=== PATIENT | male | born 1995 | race Caucasian/White ===

== ENCOUNTER → 2017-01-09 | Outpatient (CLI) | payer BC, OTHER | END | disposition home or self-care (01) | LOC: C.RDSM 14:50 | PROVIDERS: ATTEND Physical Medicine & Rehabilitation Sports Medicine | DX: M25.531 Pain in right wrist (principal) ==

== ENCOUNTER → 2017-01-21 | Outpatient (CLI) | payer BC, OTHER | END | disposition home or self-care (01) | LOC: C.RDSM 13:00 | PROVIDERS: ATTEND Physical Medicine & Rehabilitation Sports Medicine | DX: S52.571A Other intraarticular fracture of lower end of right radius, initial encounter for closed fracture (principal); X58.XXXA Exposure to other specified factors, initial encounter ==

== ENCOUNTER → 2017-02-04 | Outpatient (CLI) | payer BC | END | disposition home or self-care (01) | LOC: C.RDSM 15:28 | PROVIDERS: ATTEND Physical Medicine & Rehabilitation Sports Medicine | DX: R52 Pain, unspecified (principal) ==

== ENCOUNTER → 2017-03-11 | Outpatient (CLI) | payer BC | END | disposition home or self-care (01) | LOC: C.RDSM 13:30 | PROVIDERS: ATTEND Physical Medicine & Rehabilitation Sports Medicine | DX: S52.572D Other intraarticular fracture of lower end of left radius, subsequent encounter for closed fracture with routine healing (principal); X58.XXXA Exposure to other specified factors, initial encounter ==